=== PATIENT | male | born 1985 | race Caucasian/White ===

== ENCOUNTER 2023-10-13 09:55 | Observation (INO) | payer OTHER, SELFPAY ==
[2023-10-13 09:56] VITALS: BP 131/91; PULSE 74; RESP 19; TEMP 36.2; O2SAT 99; BMI 30.1
--- NOTE | 2023-10-13 10:10 | CT_ITS ---
STUDY: CT ABDOMEN AND PELVIS WITHOUT CONTRAST REASON FOR EXAM: Male, 38 years old. Pain. RADIATION DOSAGE (If Supplied By Facility): CTDIvol = ( 11.21 ) mGy, DLP = ( 604.99 ) mGycm TECHNIQUE: Transaxial images were obtained from the dome of the diaphragm to the symphysis pubis without oral contrast, and without intravenous contrast. Sagittal and coronal images were reconstructed. Individualized dose optimization techniques were used for this CT. COMPARISON: No relevant prior comparison study available FINDINGS: Evaluation of the abdominal viscera is limited in the absence of intravenous contrast. LOWER THORAX: The visualized lung bases are clear. The visualized portions of the heart and pericardium are within normal limits. GALLBLADDER / BILE DUCTS: The gallbladder is distended and there is a 4.2 x 2.2 cm stone in the gallbladder neck. The common bile duct is normal in caliber. There are no calcified ductal stones. LIVER: The liver is enlarged. The liver is low in density, consistent with fatty infiltration. SPLEEN: The spleen is enlarged, measuring 14.6 cm. PANCREAS: The pancreas demonstrates an unremarkable unenhanced appearance. ADRENAL GLANDS: The adrenal glands are within normal limits. KIDNEYS / BLADDER: There are no renal or ureteral stones. There is no hydronephrosis. There are no focal renal lesions identified on this noncontrast exam. The urinary bladder is partially distended and appears grossly unremarkable. STOMACH / BOWEL: Normal visualized stomach. There is no bowel obstruction or inflammation. The appendix is visualized and appears normal. PERITONEUM / RETROPERITONEUM: There is no abdominal or pelvic free air, free fluid or fluid collection. There is no abnormal soft tissue mass identified. There is no abdominal or pelvic lymphadenopathy. VESSELS: The aorta is normal in caliber. The IVC is unremarkable. BONES: There are no destructive osseous lesions. SOFT TISSUES: The visualized soft tissues are within normal limits. CT/Abdomen/Pelvis without Cont IMPRESSION: Distended gallbladder with a 4.2 x 2.2 cm stone in the gallbladder neck. Further evaluation with ultrasound is recommended. Hepatosplenomegaly with fatty infiltration of the liver. No urinary calculi. No hydronephrosis. No bowel obstruction or inflammation. Normal appendix. Electronically Signed: Jaden Grewal MD at 11:14 EDT ,
--- NOTE | 2023-10-13 10:10 | ED.VIS.GI ---
HPI HPI - GI History of Present Illness Chief Complaint: Abd Pain Detail of Chief Complaint: Abdominal pain Informant: patient Abdominal Pain/Flank Pain Current Severity: 09/18 Narrative Narrative: Patient presents emergency department with complaint of abdominal pain that woke him up around 5 AM today. He had some mild nausea but that is resolved. Patient took Tylenol and Gas-X did not get much relief. He denies any diarrhea. Denies blood in stool or black tarry stool. He did eat a hard-boiled egg this morning and some hot chocolate to try to coat and soothe his abdomen that seem to make the pain little bit worse. Pain is felt kind of diffusely in the abdomen and into his back. No urinary symptoms. No prior history of kidney stones or gallbladder disease. There is a family history of alpha-1 antitrypsin deficiency. Patient has not been tested for this per his mother. PFSH PFS Medical History no medical history Home Medications ?Medication ?Instructions ?Recorded ?Last Taken ?Type bupropion HCl 75 mg tablet 150 mg PO DAILY 10/13/23 Unknown History Allergy/AdvReac Type Severity Reaction Status Date / Time Penicillins (PCN) Allergy Mild Rash Verified 10/13/23 09:59 Family History (Updated 10/13/23 @ 11:16 by Adin Vega) Father Myocardial infarction Surgical History no surgical history Social History Smoking Status: Never smoker ROS ROS ED Review of Systems ROS Unobtainable: other Constitutional Constitutional ED: Reports lethargy; Denies chills, fever(s), sweats or weight loss Eyes Eyes: Denies blurry vision, change in vision or diplopia ENT ENT ED: Denies rhinorrhea or sore throat Cardiovascular Cardiovascular: Denies chest pain, orthopnea or racing heartbeat Respiratory/Chest Respiratory/Chest: Denies cough, dyspnea, dyspnea on exertion, orthopnea or sputum Gastrointestinal Gastrointestinal: Reports abdominal pain and nausea; Denies diarrhea or vomiting Genitourinary Genitourinary ED: Denies dysuria, hematuria or urinary frequency Musculoskeletal Musculoskeletal: Reports back pain; Denies arthralgias, myalgias or neck pain Integumentary Denies abscess, Abrasions or rash Neurologic Neurologic: Denies headache(s) or weakness Psychiatric Psychiatric: Denies anxiety, depression or suicidal thoughts Endocrine Endocrinology: Denies polydipsia, polyphagia or polyuria Hematologic/Lymphatic Hematologic/Lymphatic: Denies easy bleeding, easy bruising or lymphadenopathy Allergic/Immunologic Allergic/Immunologic ED: Denies mouth swelling, tongue swelling or urticaria EXAM Physical Exam Const Vital Signs: 10/13/23 09:56 10/13/23 11:55 10/13/23 13:00 Temperature 97.2 F L Temperature Source Temporal Pulse Rate 74 72 72 Respiratory Rate 19 H 16 14 Blood Pressure 131/91 H 118/86 H 120/76 Blood Pressure Mean 104 96 90 Pulse Ox 99 98 98 Oxygen Delivery Method Room Air Room Air Room Air 10/13/23 13:03 Temperature 97.9 F Temperature Source Pulse Rate 90 Respiratory Rate 18 Blood Pressure 168/68 H Blood Pressure Mean 101 Pulse Ox 98 Oxygen Delivery Method Positive well nourished and well developed General Appearance ED: well developed and NAD HEENT Reports TM's clear and moist mucous membranes normocephalic and atraumatic; Negative for trauma or tenderness Tympanic Membrane ED: Yes TM's clear Eyes PERRL and EOMs intact bilaterally General Eye ED: Negative for pale conjunctiva or scleral icterus Neck no lymphadenopathy, supple and no JVD General: Negative for tenderness Chest Wall inspection of chest normal and palpation of chest normal Chest: Negative for tenderness Resp normal respiratory effort and clear to auscultation bilaterally Effort and Inspection: Negative for respiratory distress or pain with movement Auscultation: Negative for rhonchi, wheezes or diminished lung sounds Cardio regular rate, regular rhythm, S1 normal heart sound, S2 normal heart sound and no murmurs Peripheral Pulses: pulses 2+ throughout GI normal to inspection, nondistended, normoactive bowel sounds, soft to palpation, non-distended and no masses GI Narrative: Tenderness palpation to the right upper quadrant with some guarding and positive Montilla sign. Patient also with some minimal discomfort in the right lower quadrant. There is no rebound, rigidity, or pineal signs. No mass palpated. Back/Spine no CVA tenderness and no thoracic nor lumbar tenderness Extremity normal to inspection General Extremety ED: Negative for edema General Extremity: Negative for edema Neuro oriented x3, CN's II-XII intact bilaterally, no sensory deficits noted and gait normal Sensorium / Orientation: awake, alert, oriented to person, oriented to place and oriented to time Motor Exam: strength 5/5 throughout and strength abnormal Psych mental status grossly normal Skin no rashes or lesions noted and no wounds MDM MDM MDM Narrative Medical decision making narrative: Patient presents with abdominal pain in the upper abdomen. In the differential would be gallbladder disease versus colitis or other intra-abdominal process such as kidney stone. IV line established. Patient medicated with Dilaudid and Zofran. CBC with differential obtained showed a white count of 9.2 with hemoglobin 16.6 and platelet count of 248. Chemistries unremarkable. LFTs unremarkable. Urinalysis unremarkable. CT scan of the abdomen pelvis showed a large stone in the neck of the gallbladder and recommended obtaining ultrasound. Patient continues to have pain and was remedicated with Dilaudid 1 mg. I discussed case with general surgeon on-call Dr. Gay who did recommend we obtain an ultrasound of the gallbladder to evaluate further which was performed. Again ultrasound showed large stone in the neck of gallbladder without evidence of cholecystitis otherwise. I was asked by the surgeon to start patient on Cipro and Flagyl and obtain a preop EKG which will be done. Patient will be admitted for possible cholecystectomy. Lab Data Attestation: I reviewed the patient's lab results. Labs: Laboratory Results - last 24 hr 10/13/23 10/13/23 10:15 12:50 WBC 9.2 RBC 5.99 Hgb 16.6 H Hct 49.4 MCV 82.5 MCH 27.7 MCHC 33.6 RDW Std Deviation 38.1 RDW Coeff of Sophie 12.8 Plt Count 248 MPV 9.8 Immature Gran % (Auto) 0.300 Neut % (Auto) 68.8 Lymph % (Auto) 23.6 [place] % (Auto) 5.4 Eos % (Auto) 1.2 Baso % (Auto) 0.7 Absolute Neuts (auto) 6.3 Absolute Lymphs (auto) 2.16 Nucleated RBC % 0.2 Sodium 139 Potassium 4.4 Chloride 108 H Carbon Dioxide 27.0 Anion Gap 4 L BUN 17 Creatinine 1.10 Estim Creat Clear Calc 105.48 Est GFR (MDRD) Af Amer 96 Est GFR (MDRD) Non-Af 80 BUN/Creatinine Ratio 15.5 Glucose 113 H Calcium 9.2 Total Bilirubin 0.50 AST 32 ALT 66 H Alkaline Phosphatase 70 Total Protein 7.7 Albumin 3.8 Globulin 3.9 Albumin/Globulin Ratio 1.0 Lipase 55 Urine Color Yellow Urine Clarity Clear Urine pH 8.0 Ur Specific [place] 1.010 Urine Protein Negative Urine Glucose (UA) Normal Urine Ketones Negative Urine Occult Blood Negative Urine Nitrite Negative Urine Bilirubin Negative Urine Urobilinogen Normal Ur Leukocyte Esterase Negative Urine RBC 0 SEEN Urine WBC 0 SEEN Ur Squamous Epith Cells 0 SEEN Urine Bacteria 0 SEEN Urine Mucus 0 SEEN Radiography Diagnostic Testing: Clinical Impression(s) from Imaging Studies Abdomen/Pelvis CT 10/13/23 10:10 IMPRESSION: Distended gallbladder with a 4.2 x 2.2 cm stone in the gallbladder neck. Further evaluation with ultrasound is recommended. Hepatosplenomegaly with fatty infiltration of the liver. No urinary calculi. No hydronephrosis. No bowel obstruction or inflammation. Normal appendix. Electronically Signed: Jaden Grewal MD at 11:14 EDT , Gallbladder Ultrasound 10/13/23 11:31 IMPRESSION: 1. Gallstone without evidence of gallbladder wall thickening or biliary dilatation. 2. Hepatic steatosis. Electronically Signed: Hima Bush MD at 12:47 EDT , EKG Initial EKG: Attestation: I personally reviewed and interpreted this EKG as follows: Comments: Sinus rhythm with ventricular rate of 68 bpm with occasional PACs Discharge Plan Dx/Rx/DC Orders Clinical Impression: Abdominal pain, Cholelithiasis Disposition Disposition: Acute Care [facility]
[2023-10-13] MEDS: 0.9% Normal Saline (1000mL) 1,000 ML 125 ML IV (10:25)
[2023-10-13] MEDS: Ondansetron 4 MG/2 ML Vial IV (10:26)
[2023-10-13] MEDS: HYDROmorphone 1 MG/ML Syringe IV ×2 (10:26→12:47)
[2023-10-13 10:41] LABS: Absolute Lymphocyte Count 2.16 X10^3/uL (0.83-4.51); Absolute Neutrophil Count 6.3 X10^3/uL (2.0-7.7); Basophil# 0.06 X10^3/uL; Basophil% 0.7 % (0-1); Eosinophil# 0.11 X10^3/uL; Eosinophils% 1.2 % (0-5); Hematocrit 49.4 % (40-54); Hemoglobin 16.6 g/dL (13.0-16.5); Lymphocyte # 2.16 X10^3/ul (0.83-4.51); Lymphocyte % 23.6 % (19-41); Mean Corp Hgb Conc 33.6 g/dL (32-36); Mean Corpuscular Hgb 27.7 pg (27.0-32.0); Mean Corpuscular Volume 82.5 fL (80-94); Mean Platelet Vol. 9.8 fl (6.2-12.0); Monocyte# 0.49 X10^3/uL; Monocyte% 5.4 % (0-10); NRBC Flagged by Analyzer 0.2 % (0-5); Neutrophil % 68.8 % (47-70); Platelet Count 248 K/mm3 (150-450); RBC Distribution Width CV 12.8 % (11.6-14.6); RBC Distribution Width SD 38.1 fl (35.1-43.9); Red Blood Count 5.99 M/mm3 (4.6-6.2); White Blood Count 9.2 K/mm3 (4.4-11.0)
[2023-10-13 10:47] LABS: AST(SGOT) 32 U/L (15-37); Alanine Aminotransfer ALT/SGPT 66 U/L (16-61); Albumin, Serum 3.8 g/dL (3.2-5.0); Alkaline Phosphatase 70 U/L (45-117); Anion Gap 4 (5-15); BUN 17 mg/dL (7-18); BUN/Creat Ratio 15.5 RATIO (10-20); Calcium,Total 9.2 mg/dL (8.5-10.1); Chloride 108 mmol/L (98-107); EST Glomerular Filtration Rate 80 mL/min (>60); Est Glom Filt Rate - Afr Amer 96 mL/min (>60); Estimated Creatinine Clearance 105.48 ml/min; Globulin 3.9 g/dL (2.2-4.2); Glucose 113 mg/dL (74-106); Lipase 55 U/L (13-75); Potassium 4.4 mmol/L (3.5-5.1); Protein, Total 7.7 g/dL (6.4-8.2); Sodium Level 139 mmol/L (136-145)
--- NOTE | 2023-10-13 11:31 | US_ITS ---
INDICATION: abdominal pain EXAMINATION: Ultrasound US Gallbladder (abdomen limited) TECHNIQUE: Gu scale and color doppler imaging was performed of the gallbladder. COMPARISON: CT scan of the abdomen and pelvis of the same day. FINDINGS: Solitary gallstone in the gallbladder neck is seen. The gallbladder wall measures 3 mm. The proximal common bile duct measures 4 mm, which is within normal limits for the patient''s age. Sonographic Montilla''s Sign: Not assessed. The right kidney measures 11.5 cm in length. No evidence of hydronephrosis. The liver measures about 17.7 cm in length and is echogenic in texture. The portal vein is not visualized. US/Gallbladder IMPRESSION: 1. Gallstone without evidence of gallbladder wall thickening or biliary dilatation. 2. Hepatic steatosis. Electronically Signed: Hima Bush MD at 12:47 EDT ,
[2023-10-13 11:55] VITALS: BP 118/86; PULSE 72; RESP 16; O2SAT 98
[2023-10-13] MEDS: Pantoprazole Sodium 40 MG in 0.9% Normal Saline (100mL MB+) 100 ML 330 MG IV (11:58)
[2023-10-13 12:56] LABS: Bacteria 0 SEEN /hpf (None Seen); Mucous, Urine 0 SEEN /hpf (<or=2+); Red Blood Cells-Urine 0 SEEN /hpf (0-5); Squamous Epithelial Cells - UA 0 SEEN /hpf (0-5); White Blood Cells 0 SEEN /hpf (0-5)
[2023-10-13 12:58] LABS: Color, Urine Yellow (Yellow); Glucose, Dipstick Normal (Normal); Ketone-Dipstick Negative (Negative); Leukocyte Esterase-Dipstick Negative /ul (Negative); Nitrite-Dipstick Negative (Negative); Occult Blood-Urine Negative /ul (Negative); Protein-Dipstick Negative (Negative); Urine Bilirubin Dipstick Negative (Negative); Urine Clarity Clear (Clear); Urine Urobilinogen Normal (Normal)
[2023-10-13 13:00] VITALS: BP 120/76; PULSE 72; RESP 14; O2SAT 98
--- NOTE | 2023-10-13 13:02 | HP.PCM.SX_ITS ---
HPI - General General Date of Admission: 10/13/23 HPI Narrative KYAW SHARP, is a 38 M who presents to the ER due to right upper quadrant and back pain. Patient states pain started about 5 AM patient did have some little [employer] at about midnight and some pizza prior to that. Patient that eating can make his pain a little bit better did try hard-boiled egg and a piece of bread but the pain did not improve. Patient does have a history of reflux but states more of a burning up the esophagus which he denies this morning. Patient denies having similar history after eating fatty greasy foods in the past. CT on pelvis showed a large 4 x 2 cm gallstone in the neck of the gallbladder with a distended gallbladder, ultrasound shows the same gallbladder wall 3 mm, Montilla sign was not assessed, normal common bile duct. Patient has required Dilaudid x 2 in the ER. Did get IV Protonix as well as getting Cipro and Flagyl IV. Patient normal white blood cell count with no shift. PFSH Medical History no medical history Home Medications ?Medication ?Instructions ?Recorded ?Last Taken ?Type bupropion HCl 75 mg tablet 150 mg PO DAILY 10/13/23 Unknown History Allergy/AdvReac Type Severity Reaction Status Date / Time Penicillins (PCN) Allergy Mild Rash Verified 10/13/23 09:59 Family History (Updated 10/13/23 @ 11:16 by Adin Vega) Father Myocardial infarction Surgical History no surgical history Social History Smoking Status: Never smoker ROS Constitutional Constitutional: Denies fever(s) Eyes Eyes: Denies loss of central vision ENT HEENT: Denies dysphagia Cardiovascular Cardiovascular: Denies chest pain Respiratory/Chest Respiratory/Chest: Denies productive cough Gastrointestinal Gastrointestinal: Reports abdominal pain; Denies diarrhea or vomiting Genitourinary Genitourinary: Denies dysuria Musculoskeletal Musculoskeletal: Denies joint swelling Integumentary Integumentary: Denies jaundice Vital Signs Vital Signs Vital Signs: 10/13/23 09:56 10/13/23 11:55 Temperature 97.2 F L Temperature Source Temporal Pulse Rate 74 72 Respiratory Rate 19 H 16 Blood Pressure 131/91 H 118/86 H Blood Pressure Mean 104 96 Pulse Ox 99 98 Oxygen Delivery Method Room Air Room Air Weight Weight: 210 lb Body Mass Index (BMI) 30.1 Physical Exam Const alert, oriented x3 and no apparent distress HEENT normocephalic and head/scalp atraumatic Resp normal respiratory effort Cardio regular rate GI soft to palpation; Negative for non-distended Palpation: tender RUQ (mild just got dilaudid); Negative for guarding Extremity no clubbing, cyanosis or edema Neuro CN's II-XII intact bilaterally Psych mental status grossly normal Results Lab / Micro Data 10/13/23 10:15 10/13/23 10:15 Labs: Laboratory Results - last 24 hr 10/13/23 10:15: WBC 9.2, RBC 5.99, Hgb 16.6 H, Hct 49.4, MCV 82.5, MCH 27.7, MCHC 33.6, RDW Std Deviation 38.1, RDW Coeff of Sophie 12.8, Plt Count 248, MPV 9.8, Immature Gran % (Auto) 0.300, Neut % (Auto) 68.8, Lymph % (Auto) 23.6, [place] % (Auto) 5.4, Eos % (Auto) 1.2, Baso % (Auto) 0.7, Absolute Neuts (auto) 6.3, Absolute Lymphs (auto) 2.16, Nucleated RBC % 0.2, Sodium 139, Potassium 4.4, C hloride 108 H, Carbon Dioxide 27.0, Anion Gap 4 L, BUN 17, Creatinine 1.10, Estim Creat Clear Calc 105.48, Est GFR (MDRD) Af Amer 96, Est GFR (MDRD) Non-Af 80, BUN/Creatinine Ratio 15.5, Glucose 113 H, Calcium 9.2, Total Bilirubin 0.50, AST 32, ALT 66 H, Alkaline Phosphatase 70, Total Protein 7.7, Albumin 3.8, Globulin 3.9, Albumin/Globulin Ratio 1.0, Lipase 55 Imaging Radiology Impression Abdomen/Pelvis CT 10/13/23 10:10 IMPRESSION: Distended gallbladder with a 4.2 x 2.2 cm stone in the gallbladder neck. Further evaluation with ultrasound is recommended. Hepatosplenomegaly with fatty infiltration of the liver. No urinary calculi. No hydronephrosis. No bowel obstruction or inflammation. Normal appendix. Electronically Signed: Jaden Grewal MD at 11:14 EDT , Gallbladder Ultrasound 10/13/23 11:31 IMPRESSION: 1. Gallstone without evidence of gallbladder wall thickening or biliary dilatation. 2. Hepatic steatosis. Electronically Signed: Hima Bush MD at 12:47 EDT , Assessment & Plan Assessment/Plan (1) RUQ pain: (2) Cholelithiasis: (3) Elevated alanine aminotransferase (ALT) level: PLAN: Plan Reviewed CT abdomen pelvis and ultrasound personally and with the patient and mom. Patient does have right upper quadrant pain and has required a repeat dose of Dilaudid likely acute cholecystitis due to a stone in the neck of the gallbladder. N.p.o./IV fluids Ciprofloxacin/Flagyl IV Pain control Reviewed the anatomy with the patient and discussed the procedure: laparoscopic cholecystectomy with cholangiograms, possible open. Review risks including but not limited to bleeding, infection, hernia, bile leak, retained gallstones requiring another procedure ERCP- Endoscopic Retrograde Cholangiopancreatography, injury to another organ (bile ducts, common bile duct, small bowel, etc.), subtotal cholecystectomy and conversion to an open procedure. All questions were answered. Zulma Gay M.D. Pager: [phone] [facility] [address] [place] [address], [address] [place] [address] Office: [phone]
[2023-10-13 13:03] VITALS: BP 168/68; PULSE 90; RESP 18; TEMP 36.6; O2SAT 98
--- NOTE | 2023-10-13 13:10 | EKG12_ITS ---
Test Reason : PRE-OP Blood Pressure : / mmHG Vent. Rate : 068 BPM Atrial Rate : 068 BPM P-R Int : 178 ms QRS Dur : 100 ms QT Int : 410 ms P-R-T Axes : 061 052 032 degrees QTc Int : 435 ms Normal sinus rhythm with sinus arrhythmia Normal ECG Confirmed by Cristo Blackwell ([id number]), magazine editor JASON ARMSTRONG ([id number]) on 10/15/2023 2:16:13 PM Referred By: Confirmed By:Cristo Blackwell
--- NOTE | 2023-10-13 13:13 | NURSING ---
NO OLD EKGS
--- NOTE | 2023-10-13 13:17 | NURSING ---
[facility] OBS ROBOTRAMONA ABD PAIN, CHOLELITHIASIS
[2023-10-13] MEDS: Ciprofloxacin 400 MG/200 ML BAG 200 MG IV ×2 (13:25→22:02)
[2023-10-13 14:30] VITALS: BP 121/84; PULSE 78; RESP 15; TEMP 36.7; O2SAT 98
[2023-10-13 14:39] VITALS: BMI 30.6
[2023-10-13] MEDS: Lactated Ringers 1,000 ML 120 ML IV ×2 (15:23→22:05)
[2023-10-13] MEDS: metroNIDAZOLE 500 MG/100 ML BAG 100 MG IV ×2 (15:23→23:58)
[2023-10-13 19:38] VITALS: BP 125/87; PULSE 75; RESP 18; TEMP 37.1; O2SAT 99
[2023-10-14 00:30] VITALS: BP 119/74; PULSE 68; RESP 18; TEMP 37.1; O2SAT 99
[2023-10-14 04:06] LABS: Absolute Lymphocyte Count 2.84 X10^3/uL (0.83-4.51); Absolute Neutrophil Count 5.3 X10^3/uL (2.0-7.7); Basophil# 0.03 X10^3/uL; Basophil% 0.3 % (0-1); Eosinophil# 0.18 X10^3/uL; Hematocrit 45.2 % (40-54); Hemoglobin 15.3 g/dL (13.0-16.5); Lymphocyte # 2.84 X10^3/ul (0.83-4.51); Lymphocyte % 31.8 % (19-41); Mean Corp Hgb Conc 33.8 g/dL (32-36); Mean Corpuscular Hgb 28.2 pg (27.0-32.0); Mean Corpuscular Volume 83.2 fL (80-94); Mean Platelet Vol. 9.8 fl (6.2-12.0); Monocyte# 0.59 X10^3/uL; Monocyte% 6.6 % (0-10); NRBC Flagged by Analyzer 0 % (0-5); Neutrophil # 5.26 X10^3/uL (2.7-7.7); Platelet Count 220 K/mm3 (150-450); RBC Distribution Width CV 12.9 % (11.6-14.6); RBC Distribution Width SD 38.5 fl (35.1-43.9); Red Blood Count 5.43 M/mm3 (4.6-6.2); White Blood Count 8.9 K/mm3 (4.4-11.0)
[2023-10-14 04:42] LABS: AST(SGOT) 21 U/L (15-37); Alanine Aminotransfer ALT/SGPT 47 U/L (16-61); Albumin, Serum 3.3 g/dL (3.2-5.0); Alkaline Phosphatase 62 U/L (45-117); Anion Gap 5 (5-15); BUN 12 mg/dL (7-18); BUN/Creat Ratio 12.2 RATIO (10-20); Bilirubin, Direct 0.14 mg/dL (0.00-0.30); Calcium,Total 8.7 mg/dL (8.5-10.1); Chloride 108 mmol/L (98-107); Creatinine, Serum 0.98 mg/dL (0.70-1.30); EST Glomerular Filtration Rate 90 mL/min (>60); Est Glom Filt Rate - Afr Amer 109 mL/min (>60); Estimated Creatinine Clearance 119.35 ml/min; Globulin 3.2 g/dL (2.2-4.2); Glucose 100 mg/dL (74-106); Potassium 3.8 mmol/L (3.5-5.1); Protein, Total 6.5 g/dL (6.4-8.2); Sodium Level 139 mmol/L (136-145)
[2023-10-14] MEDS: metroNIDAZOLE 500 MG/100 ML BAG 100 MG IV ×3 (05:11→22:13)
[2023-10-14 05:33] VITALS: BP 120/77; PULSE 70; RESP 16; TEMP 37.1; O2SAT 100
[2023-10-14] MEDS: Lactated Ringers 1,000 ML 120 ML IV ×2 (07:10→22:12)
--- NOTE | 2023-10-14 08:01 | PN.SURG_ITS ---
Subjective Subjective Patient denies abdominal or back pain Objective Data Objective Data Vital Signs: Vital Signs Temp Pulse Resp BP Pulse Ox O2 Del Method 98.7 F 70 16 120/77 100 Room Air 10/14/23 05:33 10/14/23 05:33 10/14/23 05:33 10/14/23 05:33 10/14/23 05:33 10/14/23 05:33 Oxygen Delivery Method Room Air Weight: 213 lb 10.047 oz Body Mass Index (BMI) 30.6 Intake & Output: Intake and Output for Last 24 Hours 10/12/23 10/13/23 10/14/23 23:59 23:59 23:59 Intake Total 1905.67 / 1905.67 1400 / 1400 Balance 1905.67 / 1905.67 1400 / 1400 Lab / Micro Data 10/14/23 03:36 10/14/23 03:36 Labs: Laboratory Results - last 24 hr 10/13/23 10:15: WBC 9.2, RBC 5.99, Hgb 16.6 H, Hct 49.4, MCV 82.5, MCH 27.7, MCHC 33.6, RDW Std Deviation 38.1, RDW Coeff of Sophie 12.8, Plt Count 248, MPV 9.8, Immature Gran % (Auto) 0.300, Neut % (Auto) 68.8, Lymph % (Auto) 23.6, [place] % (Auto) 5.4, Eos % (Auto) 1.2, Baso % (Auto) 0.7, Absolute Neuts (auto) 6.3, Absolute Lymphs (auto) 2.16, Nucleated RBC % 0.2, Sodium 139, Potassium 4.4, C hloride 108 H, Carbon Dioxide 27.0, Anion Gap 4 L, BUN 17, Creatinine 1.10, Estim Creat Clear Calc 105.48, Est GFR (MDRD) Af Amer 96, Est GFR (MDRD) Non-Af 80, BUN/Creatinine Ratio 15.5, Glucose 113 H, Calcium 9.2, Total Bilirubin 0.50, AST 32, ALT 66 H, Alkaline Phosphatase 70, Total Protein 7.7, Albumin 3.8, Globulin 3.9, Albumin/Globulin Ratio 1.0, Lipase 55 10/13/23 12:50: Urine Color Yellow, Urine Clarity Clear, Urine pH 8.0, Ur Specific [place] 1.010, Urine Protein Negative, Urine Glucose (UA) Normal, Urine Ketones Negative, Urine Occult Blood Negative, Urine Nitrite Negative, Urine Bilirubin Negative, Urine Urobilinogen Normal, Ur Leukocyte Esterase Negative, Urine RBC 0 SEEN, Urine WBC 0 SEEN, Ur Squamous Epith Cells 0 SEEN, Urine Bacteria 0 SEEN, Urine Mucus 0 SEEN 10/14/23 03:36: WBC 8.9, RBC 5.43, Hgb 15.3, Hct 45.2, MCV 83.2, MCH 28.2, MCHC 33.8, RDW Std Deviation 38.5, RDW Coeff of Sophie 12.9, Plt Count 220, MPV 9.8, Immature Gran % (Auto) 0.300, Neut % (Auto) 59.0, Lymph % (Auto) 31.8, [place] % (Auto) 6.6, Eos % (Auto) 2.0, Baso % (Auto) 0.3, Absolute Neuts (auto) 5.3, Absolute Lymphs (auto) 2.84, Nucleated RBC % 0, Sodium 139, Potassium 3.8, C hloride 108 H, Carbon Dioxide 26.0, Anion Gap 5, BUN 12, Creatinine 0.98, Estim Creat Clear Calc 119.35, Est GFR (MDRD) Af Amer 109, Est GFR (MDRD) Non-Af 90, BUN/Creatinine Ratio 12.2, Glucose 100, Calcium 8.7, Total Bilirubin 0.70, Direct Bilirubin 0.14, AST 21, ALT 47, Alkaline Phosphatase 62, Total Protein 6.5, Albumin 3.3, Globulin 3.2 Radiography Diagnostic Testing: Radiology Impression Abdomen/Pelvis CT 10/13/23 10:10 IMPRESSION: Distended gallbladder with a 4.2 x 2.2 cm stone in the gallbladder neck. Further evaluation with ultrasound is recommended. Hepatosplenomegaly with fatty infiltration of the liver. No urinary calculi. No hydronephrosis. No bowel obstruction or inflammation. Normal appendix. Electronically Signed: Jaden Grewal MD at 11:14 EDT , Gallbladder Ultrasound 10/13/23 11:31 IMPRESSION: 1. Gallstone without evidence of gallbladder wall thickening or biliary dilatation. 2. Hepatic steatosis. Electronically Signed: Hima Bush MD at 12:47 EDT , Physical Exam Const alert, oriented x3 and no apparent distress HEENT normocephalic Resp normal respiratory effort Cardio regular rate GI soft to palpation and non-tender; Negative for non-distended Palpation: Negative for guarding Psych mental status grossly normal Assessment & Plan Assessment/Plan (1) RUQ pain: (2) Cholelithiasis: (3) Elevated alanine aminotransferase (ALT) level: PLAN: Plan Okay for clears today will be n.p.o. at midnight for laparoscopic cholecystectomy tomorrow Ciprofloxacin/Flagyl IV?blood count normal, no shift Previously elevated ALT resolved Pain control Reviewed the anatomy with the patient and discussed the procedure: laparoscopic cholecystectomy with cholangiograms, possible open. Review risks including but not limited to bleeding, infection, hernia, bile leak, retained gallstones requiring another procedure ERCP- Endoscopic Retrograde Cholangiopancreatography, injury to another organ (bile ducts, common bile duct, small bowel, etc.), subtotal cholecystectomy and conversion to an open procedure. All questions were answered. Zulma Gay M.D. Pager: [phone] [facility] [address] [place] [address], [address] [place] [address] Office: [phone]
[2023-10-14 08:44] VITALS: BP 122/78; PULSE 75; RESP 18; TEMP 36.6; O2SAT 98
[2023-10-14] MEDS: Pantoprazole Sodium 40 MG in 0.9% Normal Saline (100mL MB+) 100 ML 330 MG IV (10:15)
[2023-10-14] MEDS: Ciprofloxacin 400 MG/200 ML BAG 200 MG IV ×2 (11:01→21:15)
[2023-10-14 13:52] VITALS: BP 121/78; PULSE 73; RESP 18; TEMP 36.6; O2SAT 99
[2023-10-14 21:17] VITALS: BP 126/88; PULSE 78; RESP 18; TEMP 36.6; O2SAT 99
[2023-10-15] VITALS (13 sets, daily range): BP systolic 118–139; BP diastolic 69–90; PULSE 55–100; RESP 16–55; TEMP 36.5–37.2; O2SAT 95–99; BMI 30.6
--- NOTE | 2023-10-15 | GALL_PTH ---
PATIENT: KYAW SHARP LOC: MS3 U#:[id number] AGE/SX: 38/M ROOM: SC316 RE10/13/[address]: Dr. Zulma Gay MD : 1985 BED: 1 DIS: 10/16/2023 SPEC #: [id number] RECD: 10/15/23 10:46 STATUS: FRANCI MARKY #: [id number] ASHLEE: 10/15/23 00:[address]: Zulma Gay DEPT: SURGICAL PATHOLOGY RECD BY: Taiwo Matos ENTERED: 10/16/23 10:47 SP TYPE: SWATI ALONSO DR: Dr. Eliecer Mcmanus DO Tissues: A - Gallbladder, NOS B - Liver, NOS Procedures: Trichrome (control) Special Stain Group I PAS Stain (control) Surgery Specimen Level III Surgery Specimen Level V Retic (control) Iron Stain (control) HEADER OPERATION: Laparoscopic, cholecystectomy with IOC, liver biopsy PRE-OP DIAGNOSIS: Right upper quadrant pain, cholelithiasis, elevated alanine aminotransferase level TISSUE SUBMITTED: A- Gallbladder, B- Liver biopsy MICROSCOPIC DIAGNOSIS A. Gallbladder, cholecystectomy: Chronic cholecystitis and cholelithiasis. B. Liver, core biopsy: Liver parenchymal tissue with extensive macro- and microvesicular steatosis. Focal mild increased portal and periportal fibrosis. See microscopic description and comment. PORTER/ 10/17/2023 COMMENT B. Correlation with clinical, radiologic and laboratory findings and appropriate follow up are necessary. MICROSCOPIC DESCRIPTION Slides are reviewed. B. This specimen showed liver parenchymal tissue with preserved lobular architecture. Hepatocytes show extensive macro- and microvesicular steatosis and reactive changes. Significant lobular inflammation is not seen. Portal areas also do not show significant inflammation. Interface inflammation is not seen. Iron stain shows 1+ iron deposition in the hepatocytes. Reticulin stain highlights normal lobular architecture. Trichrome stain shows focal mild increased portal and periportal fibrosis. Bridging fibrosis or cirrhosis is not seen. PAS stain with and without diastase do not show any abnormal accumulation of protein. All stains are performed with appropriate matched controls. GROSS DESCRIPTION A. Received is one container labeled with the patient's name and designated gallbladder. The specimen consists of a gallbladder measuring 11.5 cm in length and up to 4.0 cm in diameter. The external surface is pink-moseley, smooth and glistening for the most part. Focally it is granular, hemorrhagic and contains cautery artifact. The gallbladder contains thick green-yellow mucoid bile and one ovoid green stone measuring in aggregate 5.0 x 2.5 x 2.0 cm. The mucosa is bile-stained and without any mass lesions. The gallbladder wall measures up to 0.3 cm in thickness. Cylinder Die Machine Helper sections from the gallbladder and the cystic duct are submitted in one cassette. B. Received in fresh and part fixed in formalin is one container labeled with the patient's name and designated Liver biopsy. The specimen consists of one elongated fragment of moseley-light yellow soft tissue measuring 1.5cm in length and 0.1cm in diameter. The entire specimen is submitted in one cassette. Lori 10/16/2023 TC:3 CPT:36595,26726,66467m5
[2023-10-15] MEDS: metroNIDAZOLE 500 MG/100 ML BAG 100 MG IV ×2 (04:57→13:53)
[2023-10-15 06:26] LABS: Absolute Lymphocyte Count 2.01 X10^3/uL (0.83-4.51); Absolute Neutrophil Count 4.4 X10^3/uL (2.0-7.7); Basophil# 0.03 X10^3/uL; Basophil% 0.4 % (0-1); Eosinophil# 0.13 X10^3/uL; Eosinophils% 1.8 % (0-5); Hematocrit 46.5 % (40-54); Hemoglobin 15.5 g/dL (13.0-16.5); Lymphocyte # 2.01 X10^3/ul (0.83-4.51); Lymphocyte % 28.3 % (19-41); Mean Corp Hgb Conc 33.3 g/dL (32-36); Mean Corpuscular Hgb 27.6 pg (27.0-32.0); Mean Corpuscular Volume 82.9 fL (80-94); Mean Platelet Vol. 9.2 fl (6.2-12.0); Monocyte# 0.47 X10^3/uL; Monocyte% 6.6 % (0-10); NRBC Flagged by Analyzer 0 % (0-5); Neutrophil # 4.43 X10^3/uL (2.7-7.7); Neutrophil % 62.5 % (47-70); Platelet Count 213 K/mm3 (150-450); RBC Distribution Width CV 12.8 % (11.6-14.6); RBC Distribution Width SD 38.4 fl (35.1-43.9); Red Blood Count 5.61 M/mm3 (4.6-6.2); White Blood Count 7.1 K/mm3 (4.4-11.0)
[2023-10-15] MEDS: Lactated Ringers 1,000 ML 120 ML IV (06:59)
[2023-10-15 07:10] LABS: AST(SGOT) 23 U/L (15-37); Alanine Aminotransfer ALT/SGPT 51 U/L (16-61); Albumin, Serum 3.4 g/dL (3.2-5.0); Alkaline Phosphatase 68 U/L (45-117); Anion Gap 6 (5-15); BUN 11 mg/dL (7-18); BUN/Creat Ratio 10.6 RATIO (10-20); Bilirubin, Direct 0.22 mg/dL (0.00-0.30); Calcium,Total 8.8 mg/dL (8.5-10.1); Chloride 106 mmol/L (98-107); Creatinine, Serum 1.04 mg/dL (0.70-1.30); EST Glomerular Filtration Rate 85 mL/min (>60); Est Glom Filt Rate - Afr Amer 103 mL/min (>60); Estimated Creatinine Clearance 112.46 ml/min; Globulin 3.3 g/dL (2.2-4.2); Glucose 109 mg/dL (74-106); Potassium 3.5 mmol/L (3.5-5.1); Protein, Total 6.7 g/dL (6.4-8.2); Sodium Level 138 mmol/L (136-145)
--- NOTE | 2023-10-15 09:04 | PCM.PN.SRG ---
Subjective Subjective Patient evaluated resting comfortably in bed. He denies any abdominal pain, nausea, vomiting. Objective Data Objective Data Vital Signs: Vital Signs Temp Pulse Resp BP Pulse Ox O2 Del Method 98.3 F 67 18 123/83 H 97 Room Air 10/15/23 08:13 10/15/23 08:13 10/15/23 08:13 10/15/23 08:13 10/15/23 08:13 10/15/23 08:13 Oxygen Delivery Method Room Air Weight: 213 lb 10.047 oz Body Mass Index (BMI) 30.6 Intake & Output: Intake and Output for Last 24 Hours 10/13/23 10/14/23 10/15/23 23:59 23:59 23:59 Intake Total 1905.67 / 1905.67 3410 / 3760 1472 / 1472 Balance 1905.67 / 1905.67 3410 / 3760 1472 / 1472 Lab / Micro Data 10/15/23 06:11 10/15/23 06:11 Labs: Laboratory Results - last 24 hr 10/15/23 06:11: WBC 7.1, RBC 5.61, Hgb 15.5, Hct 46.5, MCV 82.9, MCH 27.6, MCHC 33.3, RDW Std Deviation 38.4, RDW Coeff of Sophie 12.8, Plt Count 213, MPV 9.2, Immature Gran % (Auto) 0.400, Neut % (Auto) 62.5, Lymph % (Auto) 28.3, Gonzales % (Auto) 6.6, Eos % (Auto) 1.8, Baso % (Auto) 0.4, Absolute Neuts (auto) 4.4, Absolute Lymphs (auto) 2.01, Nucleated RBC % 0, Sodium 138, Potassium 3.5, Chloride 106, Carbon Dioxide 26.0, Anion Gap 6, BUN 11, Creatinine 1.04, Estim Creat Clear Calc 112.46, Est GFR (MDRD) Af Amer 103, Est GFR (MDRD) Non-Af 85, BUN/Creatinine Ratio 10.6, Glucose 109 H, Calcium 8.8, Total Bilirubin 0.90, Direct Bilirubin 0.22, AST 23, ALT 51, Alkaline Phosphatase 68, Total Protein 6.7, Albumin 3.4, Globulin 3.3 Physical Exam GI GI Narrative: Abdomen- soft, nontender. Assessment & Plan Assessment/Plan (1) Cholelithiasis: QUALIFIERS: Cholelithiasis location: gallbladder Cholecystitis presence: without cholecystitis Biliary obstruction: without biliary obstruction Qualified Code(s): K80.20 - Calculus of gallbladder without cholecystitis without obstruction PLAN: I am following this patient in conjunction with Dr. Gay. Labs reviewed Plan for Dr. Gay to perform a laparoscopic cholecystectomy with IOC later today Patient has had the opportunity to ask and have questions answered. Patient verbally understands and agrees with the plan. We will continue to monitor this patient Charges/Coding Visit Charges Inpatient E&M: 92994 Subs Hosp L1 (no charge)
--- NOTE | 2023-10-15 09:22 | PCM.DC ---
Discharge Instructions Diet Discharge Diet: Light diet - advance as tolerated Activity Discharge Activity: May Not Drive (for 3 days or while taking narcotic pain medication) Lifting Restrictions: No lifting greater than 15 pounds for 2 weeks Dressing / Incision Call your doctor if your incision/area has: Continuous Slow Oozing, Sudden Increased Bleeding, Increased Pain/ Swelling, Increased Redness, Foul Smelling Discharge and Swelling at the incision site Call your doctor if you observe: Fever of 101 or Higher Suture Line Care: Avoid Pulling/Pushing and Avoid Pinching/Bending Remove Dressing in: 2 days Cleanse incision/area with: Soap & Water Follow Up Care Please Follow Up With: Zulma Gay MD When: Please contact our office to schedule a follow-up appointment for 10-14 days after your surgery. Office number is [phone] option #2 to schedule your appointment. Test Results: Test results from this visit will be discussed in further detail at your follow-up appointment, if applicable. Discharge Plan Admission Admit Date/Time: 10/13/23 12:54 Primary Reason for Your Visit: Cholelithiasis Attending Provider: Zulma Gay Primary Care Provider: Eliecer Mcmanus Instructions Additional Instructions / Restrictions: Cholecystectomy Diet ? Start light with soups and soft bland foods. You may advance diet as tolerated following your first bowel movement. Activity ? You may drive in 3 days but not while taking narcotic pain medication. ? I encourage walking. You may go up steps, one at a time. ? Do not swim or use hot tubs for 2 weeks. ? For comfort, you may use warm compresses or ice as needed for 15-20 minutes at a time. Lifting ? You may lift up to 15 pounds for 2 weeks. No strenuous exercise for 4 weeks. Dressings/Incision ? You may shower OVER your plastic dressings ? Do NOT tub bathe for 1 week ? Leave plastic dressings on for 2 days. ? When plastic dressings are removed, you will find steri strips. It is okay to continue showering with them in place, pat them dry. ? You may remove steri-strips after 1 week. We recommend getting them soaking wet for easier removal. Medications ? Anesthesia used during surgery and pain medications may cause constipation. I recommend initiating on the day of surgery a fiber supplement like, Metamucil, Citrucel, FiberCon, Benefiber, or a generic form of these medications. 1 heaping tablespoon in water daily. You may continue to utilize any bowel regimen or oral laxatives that you routinely take. ? As long as you are not intolerant to Tylenol, acetaminophen, ibuprofen, Motrin, Advil, Aleve, or similar medications, I would recommend transitioning to these [id number] medicines as soon as possible instead of continued use of narcotic pain medication. Follow up ? You should call [facility] soon after surgery, at [phone] option 2 to make a follow up appointment for 10-14 days after your surgery. Discharge Orders/Prescriptions Prescriptions: New acetaminophen 325 mg Tablet 650 mg PO Q6H PRN PRN (Reason: Pain Score 1-10) Qty: 0 0RF oxycodone 5 mg Tablet 5 mg PO Q6H PRN (Reason: pain) 2 Days Qty: 6 0RF pantoprazole [Protonix] 40 mg tablet,delayed release (DR/EC) 40 mg PO DAILY Qty: 30 1RF Continued bupropion HCl 75 mg tablet 150 mg PO DAILY Referrals / Follow Up: Eliecer Mcmanus DO [Primary Care Provider] - Zulma Gay MD [Med Staff - Active Staff] - 10/29/23 () Disposition Disposition (needs filled in before D/C Order can be placed): Home, Self Care
[2023-10-15] MEDS: Pantoprazole Sodium 40 MG in 0.9% Normal Saline (100mL MB+) 100 ML 330 MG IV (10:03)
[2023-10-15] MEDS: Ciprofloxacin 400 MG/200 ML BAG 200 MG IV (10:30)
[2023-10-15] MEDS: Lactated Ringers 1,000 ML 15 ML IV (12:48)
--- NOTE | 2023-10-15 13:18 | PRE.ANES_ITS ---
ASA Classification* ASA Classification ASA Classification: 2 Assessment & Plan Anesthesia* Anesthesia Assessment Anesthesia Assessment: Discussed sedation and/or anesthesia options, risks, benefits, and alternatives with patient/parents/legal guardian/POA. Questions invited. The patient/parents/legal guardian/POA seems to understand and agrees to proceed with anesthesia plan. Reviewed the physical assessment, medical history, allergy history and patient home medications list prior to surgery/procedure/anesthetic and documented any changes. Performed airway and anesthesia risk assessments. Anesthesia Type Anesthesia Type: General History Source History Obtained from:: Patient and Chart Anesthesia Focused Assessment* Temperature: 98.3 F Pulse Rate: 75 Blood Pressure: 125/84 Respiratory Rate: 18 Pulse Ox: 99 Oxygen Delivery Method: Room Air Airway Assessment Mouth opens: >3 cm Mallampati Score: III Teeth Condition: Caps/Crowns (Patient had a left lower molar that fell off. Everything else is tight.) Neck Range of motion (ROM): Full ROM Focused Labs Anesthesia Preop lab: CBC WBC 7.1 K/mm3 (4.4-11.0) 10/15/23 06:11 RBC 5.61 M/mm3 (4.6-6.2) 10/15/23 06:11 Hgb 15.5 g/dL (13.0-16.5) 10/15/23 06:11 Hct 46.5 % (40-54) 10/15/23 06:11 Plt Count 213 K/mm3 (150-450) 10/15/23 06:11 CHEMISTRY Potassium 3.5 mmol/L (3.5-5.1) 10/15/23 06:11 Sodium 138 mmol/L (136-145) 10/15/23 06:11 BUN 11 mg/dL (7-18) 10/15/23 06:11 Creatinine 1.04 mg/dL (0.70-1.30) 10/15/23 06:11 Glucose 109 mg/dL (74-106) H 10/15/23 06:11 COAG Pre-Assessment Diagnosis/Proposed Procedure Planned Operative Procedure(s): Laparoscopic cholecystectomy. Anesthesia History Anesthesia History - color worker: Anesthesia History - color worker Hx Hospitalization Any Problems With Anesthesia No 10/13/23 14:42 Cholinesterase deficiency No 10/13/23 14:42 You/Your Family Experience No 10/13/23 14:42 fever (hyperthermia) with Relationship Recent Exposure to Contagious Disease Does patient have nerve No 10/13/23 14:42 stimulator Patient instructed to have device shut off --Does patient have Pacemaker No 10/15/23 12:19 or ICD? When Was Last Pacemaker Check QUESTION #4 FULL TEXT: You/Your Family Experience fever (hyperthermia) with Anesthesia Last Oral Intake Last Oral intake: Last Oral Intake NPO since 00:00 10/15/23 12:19 Meds taken in AM with sips of water? Meds patient instructed to take am of surgery PONV PONV - color worker: PONV - color worker Female HX of Motion Sickness HX of N/V After Surgery Non-Smoker Duration of Surgery greater than 60 minutes Number of Risk Factors PONV Score Height & Weight Height & Weight: Anesthesia: Height & Weight Height 5 ft 10 in 10/15/23 12:19 Weight: 96.9 kg 10/15/23 12:19 Body Mass Index (BMI) 30.6 10/15/23 12:19 Respiratory Assessment Respiratory Assessment - color worker: Respiratory Tract Infection Hx - color worker Hx Respiratory Tract Infection No 10/13/23 14:42 STOP Sleep Apnea STOP Sleep Apnea - color worker: STOP Sleep Apnea - color worker Hx Hypertension No 10/13/23 14:40 Hx Sleep Apnea No 10/13/23 14:40 CPAP BIPAP Do you snore loudly (louder No 10/13/23 14:40 than talking or can be heard Do you often feel tired/ No 10/13/23 14:40 fatigued/ sleepy during daytime? Has anyone observed you stop No 10/13/23 14:40 breathing during sleep? STOP Results Negative 10/13/23 14:40 QUESTION #5 FULL TEXT : Do you snore loudly (louder than talking or can be heard through closed doors)? Tobacco Use History Tobacco Use History - color worker: Tobacco Use History - color worker Tobacco Use Smoking Status Never smoker 10/13/23 14:40 Hx Tobacco Use No 10/13/23 14:40 Years Smoking Packs Smoked per Day Smoking Cessation Date was within the last 15 years Hx Smoking Cessation Date Hx Smoking Cessation Counseling Hematologic Medial History Hematologic Hx - color worker: Hematologic Medical Hx - safety engineer Hx of Blood Transfusion No 10/13/23 14:40 Hx of Transfusion in last 3 No 10/13/23 14:40 Months Date of Last Transfusion (if within last 3 months) Ever experience any problems No 10/13/23 14:40 with transfusion(s)? Specify any problems Hx of Preganancy in last 3 N/A 10/13/23 14:40 Months Nurse Filling Out Transfusion SHESS 10/13/23 14:40 & Questions: Date: 10/13/23 10/13/23 14:40 Time: 14:41 10/13/23 14:40 Patient unable to answer at this time (ie. confused, unrespo /Reproduction History /Reproductive History - color worker: /Reproductive Hx- color worker Hx Now Gestational Age (in weeks): EDC: Hx Hx Para Hx Section SAB Active Medications Active Medications: Current Medications Generic Name Dose Route Start Last Admin Trade Name Freq PRN Reason Stop Dose Admin Acetaminophen 650 mg 10/13/23 14:23 Acetaminophen 325 Mg Tablet PO Q6H PRN PRN Pain Score 1-10 Hydromorphone HCl 0.5 - 1 mg 10/13/23 14:23 Hydromorphone 0.5 Mg/0.5 Ml Syringe IV Q2H PRN PRN Pain Score 1-10 Hydromorphone HCl 0.5 - 1 mg 10/13/23 14:32 Hydromorphone 1 Mg/Ml Syringe IV Q2H PRN PRN Pain Score 1-10 Lactated Ringer's 1,000 mls @ 120 mls/hr 10/13/23 14:23 10/15/23 11:20 IV 120 mls/hr .[id number] YAQUELIN Infusion Ciprofloxacin 400 mg in 200 mls @ 200 mls/hr 10/13/23 22:00 10/15/23 11:30 Cipro IV Infused Q12 YAQUELIN Infusion Metronidazole 500 mg in 100 mls @ 100 mls/hr 10/13/23 15:00 10/15/23 06:04 Flagyl IV Infused Q8 YAQUELIN Infusion Sodium Chloride 250 mls @ 15 mls/hr 10/13/23 15:40 IV .[id number] PRN Additional IVPB Infusion Sodium Chloride 250 mls @ 15 mls/hr 10/13/23 15:40 IV .[id number] PRN Saline Flush Pantoprazole Sodium 40 mg/ 110 mls @ 330 mls/hr 10/14/23 10:00 10/15/23 10:27 Sodium Chloride IV Infused Q24 YAQUELIN Infusion Lactated Ringer's 1,000 mls @ 15 mls/hr 10/15/23 12:45 10/15/23 12:48 IV 15 mls/hr .Q48H YAQUELIN Administration Oxycodone HCl 5 - 10 mg 10/13/23 14:23 Oxycodone 5 Mg Tablet PO Q4H PRN PRN Pain Score 1-10 Sodium Chloride 10 - 40 ml 10/13/23 15:40 0.9% Saline Lock 10 Ml Syringe IV UD PRN SALINE FLUSH PFSH Medical History Anxiety GERD (gastroesophageal reflux disease) Histoplasmosis Medical History no medical history Home Medications ?Medication ?Instructions ?Recorded ?Last Taken ?Type bupropion HCl 75 mg tablet 150 mg PO DAILY 10/13/23 10/12/23 History acetaminophen 325 mg tablet 650 mg (2 x 325 mg) PO Q6H PRN PRN 10/15/23 Unknown Rx Pain Score 1-10 #0 tabs oxycodone 5 mg tablet 5 mg PO Q6H PRN pain 2 days #6 tabs 10/15/23 Unknown Rx pantoprazole 40 mg tablet,delayed 40 mg PO DAILY #30 tabs 10/15/23 Unknown Rx release (Protonix) Allergy/AdvReac Type Severity Reaction Status Date / Time Penicillins (PCN) Allergy Mild Rash Verified 10/13/23 09:59 Family History Father Myocardial infarction Surgical History no surgical history Social History Smoking Status: Never smoker Review of Systems (Anesthesia) ROS Narrative System reviewed and no additional complaints, except as documented.
--- NOTE | 2023-10-15 14:09 | RAD_ITS ---
HISTORY: LAP ROB TECHNIQUE: Single series with total of 37 fluoroscopic images were saved without a radiologist present. FINDINGS: Total fluoroscopy time: 6.6 cm Cumulative air kerma: 3.49 mGy RAD/Cholangiogram/ O R,Initial IMPRESSION: Fluoroscopic assistance for intraoperative cholangiogram. Dose information documentation as above. Please see operative report for additional information. Electronically Signed: Kris Martini MD at 9:24 EDT ,
--- NOTE | 2023-10-15 15:36 | OP.PCM_ITS ---
Report of Operation Date of Procedure: 10/15/23 Pre-Operative Diagnosis: Cholelithiasis, right upper quadrant pain Post-Operative Diagnosis: Acute cholecystitis, several small white liver nodules Surgery/Procedure Performed:: Laparoscopic cholecystectomy with cholangiograms, liver biopsy Surgeon: Zulma Gay Type of Anesthesia: General/Supplemental Anesthesiologist: Vitaly Benavidez Special Medications: Cipro/Flagyl IV on the floor for cholecystitis Specimen's removed: Gallbladder and stone, liver biopsy Estimated Blood Loss (mL): 20 cc Description of Procedure: Indications: this is a 38 year-old male who developed abdominal pain/nausea/vomiting and on workup was found to have cholelithiasis?large 2 cm x 4 cm stone at the neck of the gallbladder, with a normal common bile duct. Laparoscopic cholecystectomy was elected. Description procedure: The patient was placed on operating table in supine position. A timeout was completed verifying correct patient, procedure, site, position and special equipment prior to beginning procedure. General Anesthesia was induced. The abdomen was prepped and draped in usual sterile fashion. An incision was made in the natural skin line above the umbilicus. The fascia was elevated and incised. The peritoneum was elevated and incised. Entry into the peritoneum was confirmed visually and no bowel was noted in the vicinity of the incision. Orozco trocar was placed. The abdomen was insufflated with carbon dioxide to a pressure of 12-15 mmHg. Patient tolerated insufflation well. The laparoscope was then inserted and abdomen inspected. No injuries from initial trocar placement were noted. Additional trochars were then inserted in the following locations 5 mm trocar in the epigastrium and 2 more 5 mm trochars along the right costal margin. The abdomen was inspected no abnormalities were found. The table is placed in rever se Trendelenburg position with the right side up. The adhesions between the gallbladder and omentum were lysed sharply. The dome of the gallbladder was grasped with atraumatic grasper passed through the lateral port and retracted over the dome of the liver. Infundibulum was then grasped with atraumatic grasper through the midclavicular port and retracted to the right lower quadrant. This maneuver exposed Calot's triangle. The peritoneum overlying the gallbladder infundibulum was then incised and cystic duct and artery identified and circumferentially dissected. Mak catheter was used for cholangiogram showed good filling of the common bile duct and right and left bile duct and duodenum with no filling defects. The cystic duct and artery were then doubly clipped and divided close to the gallbladder. The gallbladder then dissected from its peritoneal attachments by electrocautery. Hemostasis was checked and the gallbladder and contained stone was removed using the endoscopic retrieval bag through the umbilical port after it was enlarged to accommodate the large stone. The gallbladder is passed off table as specimen. The gallbladder fossa was irrigated with saline and hem ostasis obtained. There is no evidence of bleeding from the gallbladder fossa or cystic artery leakage of bile from the cystic duct stump. There is noted to be several 1 to 2 mm white nodules on the liver. The percutaneous Gabe-Cut liver biopsy was used to obtain biopsy of 1 of these nodules. This was sent to pathology. The Erbe and Surgicel powder were used for hemostasis. Secondary trochars removed under direct vision. No bleeding was noted the trocar sites. The laparoscope was withdrawn and umbilical trocar removed. The abdomen was allowed to collapse. The fascia of the 12 mm trocar was closed with two [id number] 0 PDS suture. The skin was closed with sutures of 4-0 Monocryl and Steri-Strips. The patient was extubated. The patient tolerated procedure well and was taken to the postanesthesia care unit in stable condition. Complications none
[2023-10-15] MEDS: Bupivacaine Mpf 0.5% 30 ML VIAL (15:37)
--- NOTE | 2023-10-15 15:43 | PCM.DC.SUM ---
Providers Date of Admission: 10/13/23 Primary Care Physician: Dr. Eliecer Mcmanus, DO Reason For Visit: CHOLELITHIASIS Diagnosis Discharge Diagnosis (1) Cholelithiasis: Status: Acute Code(s): K80.20 - Calculus of gallbladder without cholecystitis without obstruction Qualifiers: Cholelithiasis location: gallbladder Cholecystitis presence: without cholecystitis Biliary obstruction: without biliary obstruction Qualified Code(s): K80.20 - Calculus of gallbladder without cholecystitis without obstruction Plan Laparoscopic cholecystectomy today Ciprofloxacin/Flagyl IV?blood count normal, no shift Previously elevated ALT resolved Pain control Reviewed the anatomy with the patient and discussed the procedure: laparoscopic cholecystectomy with cholangiograms, possible open. Review risks including but not limited to bleeding, infection, hernia, bile leak, retained gallstones requiring another procedure ERCP- Endoscopic Retrograde Cholangiopancreatography, injury to another organ (bile ducts, common bile duct, small bowel, etc.), subtotal cholecystectomy and conversion to an open procedure. All questions were answered. Zulma Gay M.D. Pager: [phone] [facility] [address] [place] [address], [address] [place] [address] Office: [phone] Medications at Discharge Home Medications bupropion HCl 75 mg tablet 150 mg PO DAILY 10/13/23 acetaminophen 325 mg tablet 650 mg (2 x 325 mg) PO Q6H PRN PRN Pain Score 1-10 #0 tabs 10/15/23 oxycodone 5 mg tablet 5 mg PO Q6H PRN pain 2 days #6 tabs 10/15/23 pantoprazole 40 mg tablet,delayed release (Protonix) 40 mg PO DAILY #30 tabs 10/15/23 Hospital Course Operations cholecystecomy (Laparoscopic and liver biopsy) Summary of Care Provided Minutes Spent on Discharge: 15 Hospital Course: Patient was admitted due to right upper quadrant and back pain concerning for acute cholecystitis. Patient was kept on IV Cipro and Flagyl and kept n.p.o. for clears until surgery. Patient underwent a laparoscopic cholecystectomy with cholangiograms and liver biopsy due to several small millimeter nodules seen during surgery. Patient was able to tolerate diet and pain was controlled and able to be DC'd home. Weight / BMI Weight Weight: 213 lb 10.047 oz Body Mass Index (BMI) 30.6 ABG / Lab / Microbiology Data 10/15/23 06:11 10/15/23 06:11 Laboratory: Laboratory Results - last 24 hr 10/15/23 06:11: WBC 7.1, RBC 5.61, Hgb 15.5, Hct 46.5, MCV 82.9, MCH 27.6, MCHC 33.3, RDW Std Deviation 38.4, RDW Coeff of Sophie 12.8, Plt Count 213, MPV 9.2, Immature Gran % (Auto) 0.400, Neut % (Auto) 62.5, Lymph % (Auto) 28.3, Andrews % (Auto) 6.6, Eos % (Auto) 1.8, Baso % (Auto) 0.4, Absolute Neuts (auto) 4.4, Absolute Lymphs (auto) 2.01, Nucleated RBC % 0, Sodium 138, Potassium 3.5, Chloride 106, Carbon Dioxide 26.0, Anion Gap 6, BUN 11, Creatinine 1.04, Estim Creat Clear Calc 112.46, Est GFR (MDRD) Af Amer 103, Est GFR (MDRD) Non-Af 85, BUN/Creatinine Ratio 10.6, Glucose 109 H, Calcium 8.8, Total Bilirubin 0.90, Direct Bilirubin 0.22, AST 23, ALT 51, Alkaline Phosphatase 68, Total Protein 6.7, Albumin 3.4, Globulin 3.3 D/C Instructions Discharge Diet: Light diet - advance as tolerated Discharge Activity: May Not Drive (while taking narcotic pain medications.) May shower in (days): 1 Lifting Restrictions: no lifting >20 lbs x 2 wks, no strenuous exercise for 4 wks Call your doctor if your incision/area has: Continuous Slow Oozing, Sudden Increased Bleeding, Increased Pain/ Swelling, Increased Redness, Foul Smelling Discharge and Swelling at the incision site Call your doctor if you observe: Fever of 101 or Higher Suture Line Care: Avoid Pulling/Pushing and Avoid Pinching/Bending Remove Dressing in: 2 days Cleanse incision/area with: Soap & Water Additional Dressing/Incision Instructions: Steri-Strips will fall off in 7 to 10 days, if they do not fall off okay to remove after 10 days. Please Follow Up With: Zulma Gay MD When: Please contact our office to schedule a follow-up appointment for 10-14 days after your surgery. Office number is [phone] option #2 to schedule your appointment. Meaningful Use Info Meaningful Use Meaningful Use Diagnoses (Choose all that apply): None applicable Ischemic Stroke Statin Dosing Therapy Reference: STATIN DOSE THERAPY REFERENCE: * Patients > 75 years receive moderate or high dose statin therapy. * Patients 75 years or YOUNGER should receive HIGH intensity statin dose unless contraindicated. You will be required to document reason for non-treatment if statin daily dose does not meet guidelines. HIGH DOSE STATIN THERAPY DAILY Atorvastatin > than or = to 40 mg Rosuvastatin > than or = to 20 mg Amlodipine + Atorvastatin > than or = to 2.5/40 mg Ezetimibe + Simvastatin 10/80 mg Simvastatin 80mg Discharge Plan Admission Admit Date/Time: 10/13/23 12:54 Primary Reason for Your Visit: Cholelithiasis Attending Provider: Zulma Gay Primary Care Provider: Eliecer Mcmanus Instructions Additional Instructions / Restrictions: Cholecystectomy Diet ? Start light with soups and soft bland foods. You may advance diet as tolerated following your first bowel movement. Activity ? You may drive in 3 days but not while taking narcotic pain medication. ? I encourage walking. You may go up steps, one at a time. ? Do not swim or use hot tubs for 3 weeks. ? For comfort, you may use warm compresses or ice as needed for 15-20 minutes at a time. Lifting ? You may lift up to 20 pounds for 2 weeks. No strenuous exercise for 4 weeks. Dressings/Incision ? You may shower OVER your plastic dressings ? Do NOT tub bathe for 1 week ? Leave plastic dressings on for 2 days. ? When plastic dressings are removed, you will find steri strips. It is okay to continue showering with them in place, pat them dry. ? You may remove steri-strips after 1 week. We recommend getting them soaking wet for easier removal. Medications ? Anesthesia used during surgery and pain medications may cause constipation. I recommend initiating on the day of surgery a fiber supplement like, Metamucil, Citrucel, FiberCon, Benefiber, or a generic form of these medications. 1 heaping tablespoon in water daily. You may continue to utilize any bowel regimen or oral laxatives that you routinely take. ? As long as you are not intolerant to Tylenol, acetaminophen, ibuprofen, Motrin, Advil, Aleve, or similar medications, I would recommend transitioning to these sady-wzl-nbqyadi medicines as soon as possible instead of continued use of narcotic pain medication. Follow up ? You should call [facility] soon after surgery, at [phone] option 2 to make a follow up appointment for 10-14 days after your surgery. Discharge Orders/Prescriptions Prescriptions: New acetaminophen 325 mg Tablet 650 mg PO Q6H PRN PRN (Reason: Pain Score 1-10) Qty: 0 0RF oxycodone 5 mg Tablet 5 mg PO Q6H PRN (Reason: pain) 2 Days Qty: 6 0RF pantoprazole [Protonix] 40 mg tablet,delayed release (DR/EC) 40 mg PO DAILY Qty: 30 1RF Continued bupropion HCl 75 mg tablet 150 mg PO DAILY Referrals / Follow Up: Eliecer Mcmanus DO [Primary Care Provider] - Zulma Gay MD [Med Staff - Active Staff] - 10/29/23 () Disposition Disposition (needs filled in before D/C Order can be placed): Home, Self Care
--- NOTE | 2023-10-15 16:01 | PCM.POST.ANE ---
Anesthesia: Postop Eval I Current Vital Signs Temperature: 99 F Pulse Rate: 56 Blood Pressure: 129/83 Respiratory Rate: 16 Pulse Ox: 95 Oxygen Delivery Method: Nasal Cannula Oxygen Flow Rate (L/min): 4 Assessment Airway patent: Yes Spontaneous unlabored respirations: Yes Mental status: Awake nausea: No Vomiting: No Anesthesia Complication: No Fluid Hydration Crystalloid volume administer (ml): 1,800 Total IV fluid infused: 1,800 Progress Note Anesthesia document: Postop Eval 1 completed: Yes
--- NOTE | 2023-10-15 16:28 | POSTOPAN2_ITS ---
Anesthesia Postop Eval I Sum Postop Eval Completion status Anesthesia document: Postop Eval 1 completed: Yes Anesthesia Postop Eval I Summary Anesthesia Postop Eval I Summary: Anesthesia Postop Eval I: Assessment Summary Airway patent Yes 10/15/23 16:02 [email or web address] [email or web address] Spontaneous unlabored Yes 10/15/23 16:02 MACHINE [email or web address] respirations Mental status Awake 10/15/23 16:02 MACHINE [email or web address] nausea No 10/15/23 16:02 MACHINE [email or web address].[email or web address] Vomiting No 10/15/23 16:02 MACHINE [email or web address] Anesthesia Postop Eval I: Fluid Summary Crystalloid volume administer 1,800 10/15/23 16:02 MACHINE FOLDER.[email or web address] (ml) Colloids volume administered ( ml) Blood Product volume administered (ml) Total IV fluid infused 1,800 10/15/23 16:02 MACHINE [email or web address] Anesthesia Postop Eval I: Summary Notes Anesthesia Complication No 10/15/23 16:02 [email or web address] Anesthesia Complication Comment: Post-operative progress note Anesthesia: Postop Eval II Evaluation Mental status: Awake and Calm Pain Level: 2 nausea: No Vomiting: No Complications Anesthesia Complication: No
--- NOTE | 2023-10-15 16:28 | PCM.POSTANE2 ---
Anesthesia Postop Eval I Sum Postop Eval Completion status Anesthesia document: Postop Eval 1 completed: Yes Anesthesia Postop Eval I Summary Anesthesia Postop Eval I Summary: Anesthesia Postop Eval I: Assessment Summary Airway patent Yes 10/15/23 16:02 [email or web address] Spontaneous unlabored Yes 10/15/23 16:02 [email or web address] [email or web address] respirations Mental status Awake 10/15/23 16:02 [email or web address] nausea No 10/15/23 16:02 CHASSIS DRIVER.[email or web address] Vomiting No 10/15/23 16:02 [email or web address] [email or web address] Anesthesia Postop Eval I: Fluid Summary Crystalloid volume administer 1,800 10/15/23 16:02 [email or web address] [email or web address].[email or web address] (ml) Colloids volume administered ( ml) Blood Product volume administered (ml) Total IV fluid infused 1,800 10/15/23 16:02 CHASSIS DRIVER.[email or web address] Anesthesia Postop Eval I: Summary Notes Anesthesia Complication No 10/15/23 16:02 CHASSIS DRIVER.[email or web address] Anesthesia Complication Comment: Post-operative progress note Anesthesia: Postop Eval II Evaluation Mental status: Awake and Calm Pain Level: 2 nausea: No Vomiting: No Complications Anesthesia Complication: No
[2023-10-15] MEDS: HYDROmorphone 0.5 MG/0.5 ML SYRINGE IV (17:15)
[2023-10-15] MEDS: 0.9% Saline Lock 10 ML Syringe IV (17:15)
[2023-10-15] MEDS: oxyCODONE 5 MG Tablet PO ×2 (18:50→22:55)
--- NOTE | 2023-10-15 18:56 | NURSING ---
pt tolerated diet, continues to complain of pain, states dilaudid wasn't very effective, medicated for pain. discussed getting oob. discussed discharge medications. talked with pharmacy about pt obtaining discharge pain medication as discussed w/ pt/pt's mother. aware rx will bring up when patient ready to dc tonight. no further needs voiced. call light withinr each.
[2023-10-15] MEDS: Lactated Ringers 1,000 ML 80 ML IV (22:55)
[2023-10-15] MEDS: Ketorolac 15 MG/ML Vial IV (22:55)
[2023-10-16 01:14] VITALS: BP 115/72; PULSE 88; RESP 14; TEMP 37.1; O2SAT 96
[2023-10-16 05:21] VITALS: BP 123/78; PULSE 89; RESP 16; TEMP 36.8; O2SAT 97
[2023-10-16] MEDS: 0.9% Saline Lock 10 ML Syringe IV (05:23)
[2023-10-16] MEDS: Ketorolac 15 MG/ML Vial IV (05:23)
[2023-10-16] MEDS: oxyCODONE 5 MG Tablet PO (05:23)
--- NOTE | 2023-10-16 08:42 | PCM.PN.SRG ---
Subjective Subjective Patient evaluated sitting comfortably at the edge of the bed. He notes very minimal amount of incisional discomfort. He denies nausea, vomiting, fever. He notes feeling dizziness last night following the procedure. He lives with his mom, whom thought it would be a good idea to say in case he would fall. Patient notes this morning the dizziness has resolved. Objective Data Objective Data Vital Signs: Vital Signs Temp Pulse Resp BP Pulse Ox O2 Del Method O2 Flow Rate 98.2 F 89 16 123/78 H 97 Room Air 2 10/16/23 05:21 10/16/23 05:21 10/16/23 05:21 10/16/23 05:21 10/16/23 05:21 10/16/23 05:21 10/15/23 17:20 Oxygen Flow Rate (L/min) 2 Oxygen Delivery Method Room Air Weight: 213 lb 10.047 oz Body Mass Index (BMI) 30.6 Intake & Output: Intake and Output for Last 24 Hours 10/14/23 10/15/23 10/16/23 23:59 23:59 23:59 Intake Total 3410 / 3760 3682 / 4332 1767.33 / 1767.33 Balance 3410 / 3760 3682 / 4332 1767.33 / 1767.33 Lab / Micro Data 10/15/23 06:11 10/15/23 06:11 Physical Exam GI GI Narrative: Abdomen- soft, benign. Incisions c/d/i. No erythema or infection noted. Assessment & Plan Assessment/Plan (1) Cholelithiasis: QUALIFIERS: Cholelithiasis location: gallbladder Cholecystitis presence: without cholecystitis Biliary obstruction: without biliary obstruction Qualified Code(s): K80.20 - Calculus of gallbladder without cholecystitis without obstruction (2) Abdominal pain: QUALIFIERS: Abdominal location: right upper quadrant Qualified Code(s): R10.11 - Right upper quadrant pain PLAN: Plan I am following this patient in conjunction with Dr. Gay. Patient's post-surgical dizziness has resolved. He is ready for discharge Discharge instructions explained at great lengths Charges/Coding Visit Charges Inpatient E&M: 45193 Subs Hosp L1 (no charge)
[2023-10-16 08:44] VITALS: BP 125/83; PULSE 84; RESP 18; TEMP 36.8; O2SAT 98
[2023-10-16] MEDS: Acetaminophen 325 MG Tablet 650 MG PO (08:52)
[2023-10-16 10:26] VITALS: BP 135/88; PULSE 96; RESP 18; TEMP 36.6; O2SAT 97
== END 2023-10-16 11:05 | disposition home or self-care (01) ==
LOC: ED 13:13 → MS3 13:40
PROVIDERS: Admitting Provider Surgery; Emergency Provider Emergency Medicine; PCP Student in an Organized Health Care Education/Training Program; Visit Provider Surgery
PROC: (CPT 47610; principal; 2023-10-15 13:25)
DX: K80.12 Calculus of gallbladder with acute and chronic cholecystitis without obstruction (principal); K76.0 Fatty (change of) liver, not elsewhere classified
CPT/HCPCS: 47563; 47001; 00790; 36415; 74176; 74300; 76000; 76705; 80048; 80053; 80076; 81001; 83690; 85025; 88304; 88307; 88312; 93005; 94668; 96361; 96365; 96366; 96367; 96375; 96376; 99221; 99284; J7030; J7120; A4216; G0378; J0744; J2405

== ENCOUNTER → 2023-12-20 | Outpatient (CLI) | payer OTHER, SELFPAY ==
--- NOTE | 2023-12-20 09:20 | US_ITS ---
STUDY: ABDOMINAL ULTRASOUND - RIGHT UPPER QUADRANT; ELASTOGRAPHY REASON FOR VISIT: Male, 38 years old. Fatty infiltration of the liver. TECHNIQUE: Ultrasound evaluation of the right upper quadrant was performed with real-time and static heart-scale imaging. Point quantification shear wave elastography was performed (Errplane). TECHNICAL QUALITY: Adequate. COMPARISON: None. FINDINGS: Liver: The liver is mildly enlarged and measures 18 cm. There is increased echogenicity consistent with fatty infiltration. The bile ducts are within normal limits. There is hepatic color flow. The direction of portal flow is hepatopetal. There is no demonstrated mass lesion. Median liver stiffness measured 7.3 kPa. Gallbladder: The patient is status post cholecystectomy. Common Bile Duct (C.B.D.): The common bile duct measures 4 mm. Pancreas: There is normal echogenicity of the visualized pancreas. There is no demonstrated pancreatic mass or cyst. Right Kidney: Normal size of the right kidney. The right kidney measures 11 cm x 6.1 cm x 5.8 cm. Normal renal cortex. The right cortex measures 1.7 cm. There is no demonstrated renal mass or cyst. There is no right hydronephrosis. US/ABD Limited w/ Elastography IMPRESSION: 1. Liver stiffness measures 7.3 kPa compatible with F2-F3 (Mild to moderate liver fibrosis) Metavir score. Electronically Signed: Jeremy Brar MD at 11:30 EDT ,
== END | disposition home or self-care (01) ==
PROVIDERS: PCP Student in an Organized Health Care Education/Training Program; Referring Provider Student in an Organized Health Care Education/Training Program; Visit Provider Student in an Organized Health Care Education/Training Program
DX: K76.0 Fatty (change of) liver, not elsewhere classified (principal)
CPT/HCPCS: 76705; 76981